=== PATIENT | female | born 1990 | race Caucasian/White ===

== ENCOUNTER 2021-07-14 14:26 | Emergency (ER) | payer BC ==
[2021-07-14 15:44] LABS: RED BLOOD COUNT 4.96 M/UL (4.00-5.10); WHITE BLOOD COUNT 7.7 K/UL (4.5-11.0)
[2021-07-14 16:06] LABS: BUN/CREATININE RATIO 19 (0-10)
[2021-07-14] MEDS ORDERED: DICLEGIS DR 101 EACH PO (16:24)
== END 2021-07-14 16:34 | disposition home or self-care (01) ==
LOC: ER1 14:26
PROVIDERS: Physician Assistant
DX: O21.9 Vomiting of pregnancy, unspecified (principal); Z90.49 Acquired absence of other specified parts of digestive tract; Z3A.01 Less than 8 weeks gestation of pregnancy
CPT/HCPCS: 80053; 81001; 85025; 96374; 99284; J2550

== ENCOUNTER 2021-10-03 12:43 | Emergency (ER) | payer BC ==
[~2021-10-03 12:43] MED LIST: DICLEGIS DR 101 EACH PO
[2021-10-03 13:48] LABS: HEMOGLOBIN 12.5 gm/dl (12.3-15.3); RED BLOOD COUNT 3.9 M/UL (4.00-5.10); WHITE BLOOD COUNT 9.3 K/UL (4.5-11.0)
[2021-10-03 14:09] LABS: BUN/CREATININE RATIO 21 (0-10)
== END 2021-10-03 15:20 | disposition home or self-care (01) ==
LOC: ER1 12:43
PROVIDERS: Emergency Medicine
DX: O99.891 Other specified diseases and conditions complicating pregnancy (principal); R55 Syncope and collapse; Z3A.19 19 weeks gestation of pregnancy
CPT/HCPCS: 80053; 81001; 83880; 85025; 87086; 93005; 99284

== ENCOUNTER 2022-01-17 19:40 | Outpatient (CLI) | payer BC | END 2022-01-17 22:47 | disposition home or self-care (01) | LOC: GENOP 19:40 | DX: O60.03 Preterm labor without delivery, third trimester (principal); Z88.5 Allergy status to narcotic agent; Z91.048 Other nonmedicinal substance allergy status; Z3A.34 34 weeks gestation of pregnancy | CPT/HCPCS: G0463 ==

== ENCOUNTER 2022-01-18 22:35 | Outpatient (CLI) | payer BC | END 2022-01-19 00:33 | disposition home or self-care (01) | LOC: GENOP 22:35 | DX: O47.03 False labor before 37 completed weeks of gestation, third trimester (principal); O99.891 Other specified diseases and conditions complicating pregnancy; O99.513 Diseases of the respiratory system complicating pregnancy, third trimester; J45.909 Unspecified asthma, uncomplicated; R73.03 Prediabetes; R10.9 Unspecified abdominal pain; Z3A.34 34 weeks gestation of pregnancy | CPT/HCPCS: 59025; 81001; 87086 ==

== ENCOUNTER 2022-01-30 05:14 | Emergency (ER) | payer BC | END 2022-01-30 10:58 | disposition home or self-care (01) | LOC: ER1 05:14 | DX: O22.03 Varicose veins of lower extremity in pregnancy, third trimester (principal); O22.23 Superficial thrombophlebitis in pregnancy, third trimester; Z3A.36 36 weeks gestation of pregnancy; Z88.5 Allergy status to narcotic agent | CPT/HCPCS: 93971; 99283 ==

== ENCOUNTER 2022-02-14 05:06 | Inpatient (IN) | payer BC ==
[~2022-02-14] VITALS: Ht 167.6 cm; Wt 84.4 kg
[2022-02-14 06:27] LABS: HEMOGLOBIN 11.6 gm/dl (12.3-15.3); RED BLOOD COUNT 3.83 M/UL (4.00-5.10); WHITE BLOOD COUNT 8.5 K/UL (4.5-11.0)
[2022-02-15 04:28] LABS: HEMOGLOBIN 10.5 gm/dl (12.3-15.3)
[2022-02-15] MEDS ORDERED: FERROUS SULFAT325 MG PO (11:32)
[2022-02-15] MEDS ORDERED: COLACE 100MG C100 MG PO (11:32)
[2022-02-15] MEDS ORDERED: IBUPROFEN600 MG PO (11:32)
== END 2022-02-15 16:59 | disposition home or self-care (01) | DRG 807 ==
LOC: OB 05:06
PROVIDERS: ADMIT Obstetrics & Gynecology
PROC: 10E0XZZ Delivery of Products of Conception, External Approach (ICD-10-PCS; principal; 2022-02-14)
PROC: 0KQM0ZZ Repair Perineum Muscle, Open Approach (ICD-10-PCS; 2022-02-14)
PROC: 4A1HXCZ Monitoring of Products of Conception, Cardiac Rate, External Approach (ICD-10-PCS; 2022-02-14)
PROC: 3E033VJ Introduction of Other Hormone into Peripheral Vein, Percutaneous Approach (ICD-10-PCS; 2022-02-14)
PROC: 10907ZC Drainage of Amniotic Fluid, Therapeutic from Products of Conception, Via Natural or Artificial Opening (ICD-10-PCS; 2022-02-14)
PROC: 3E0234Z Introduction of Serum, Toxoid and Vaccine into Muscle, Percutaneous Approach (ICD-10-PCS; 2022-02-14)
DX: O13.4 Gestational [pregnancy-induced] hypertension without significant proteinuria, complicating childbirth (principal); Z37.0 Single live birth; Z3A.38 38 weeks gestation of pregnancy; Z20.822 Contact with and (suspected) exposure to COVID-19; O99.334 Smoking (tobacco) complicating childbirth; F17.210 Nicotine dependence, cigarettes, uncomplicated; O70.1 Second degree perineal laceration during delivery; O69.81X0 Labor and delivery complicated by cord around neck, without compression, not applicable or unspecified; Z83.3 Family history of diabetes mellitus; Z90.49 Acquired absence of other specified parts of digestive tract; Z82.49 Family history of ischemic heart disease and other diseases of the circulatory system; Z81.8 Family history of other mental and behavioral disorders; Z80.0 Family history of malignant neoplasm of digestive organs; Z83.49 Family history of other endocrine, nutritional and metabolic diseases; Z82.3 Family history of stroke; Z23 Encounter for immunization
CPT/HCPCS: 81001; 85014; 85018; 85025; 90715; J2590; J7120